=== PATIENT | female | born 1950 | race Caucasian/White ===

== ENCOUNTER 2016-09-09 15:03 | Emergency (ER) | payer MEDICARE ==
[2016-09-09 19:24] LABS: HEMOGLOBIN 13.3 gm/dl (12.3-15.3); RED BLOOD COUNT 4.87 M/UL (4.00-5.10); WHITE BLOOD COUNT 8.8 K/UL (4.5-11.0)
[2016-09-09 19:40] LABS: BUN/CREATININE RATIO 26 (0-10)
== END 2016-09-10 00:15 | disposition home or self-care (01) ==
LOC: ER1 15:03
PROVIDERS: Family Medicine
DX: R10.817 Generalized abdominal tenderness (principal); R19.7 Diarrhea, unspecified; E11.65 Type 2 diabetes mellitus with hyperglycemia; K42.9 Umbilical hernia without obstruction or gangrene; I10 Essential (primary) hypertension; I25.2 Old myocardial infarction; I25.10 Atherosclerotic heart disease of native coronary artery without angina pectoris; J44.9 Chronic obstructive pulmonary disease, unspecified; Z88.1 Allergy status to other antibiotic agents; Z99.81 Dependence on supplemental oxygen; Z90.49 Acquired absence of other specified parts of digestive tract; Z79.899 Other long term (current) drug therapy
CPT/HCPCS: 36415; 80053; 81001; 82962; 83605; 83690; 85025; 87086; 96361; 96374; 96375; 99284; J0360; J2405; J7030; J7050; Q9962

== ENCOUNTER 2016-10-23 17:14 | Emergency (ER) | payer MEDICARE ==
[2016-10-23 18:52] LABS: HEMOGLOBIN 11.7 gm/dl (12.3-15.3); RED BLOOD COUNT 4.37 M/UL (4.00-5.10); WHITE BLOOD COUNT 9.6 K/UL (4.5-11.0)
[2016-10-23 19:24] LABS: BUN/CREATININE RATIO 28 (0-10)
== END 2016-10-23 23:25 | disposition home or self-care (01) ==
LOC: ER1 17:14
PROVIDERS: Emergency Medicine
DX: J44.0 Chronic obstructive pulmonary disease with (acute) lower respiratory infection (principal); J20.9 Acute bronchitis, unspecified; I25.2 Old myocardial infarction; E11.9 Type 2 diabetes mellitus without complications
CPT/HCPCS: 36415; 71020; 80053; 82550; 82553; 83874; 84484; 85025; 93005; 94664; 96365; 96375; 99284; J0456; J0696; J2930

== ENCOUNTER 2020-05-18 20:53 | Inpatient (IN) | payer MEDICARE ==
[~2020-05-18] VITALS: Ht 152.4 cm; Wt 77.1 kg
[~2020-05-18 20:53] MED LIST: ACID REDUCER150 MG PO; ADVAIR HFA 45-218 GM INH; AMLODIPINE BESYL5 MG PO; ARICEPT5 MG PO; ASPIRIN EC81 MG PO; ASPIRIN81 MG PO; ATORVASTATIN CA20 MG PO; BACTRIM DS TAB1 EACH PO; CATAPRES 0.1MG0.1 MG PO; CEFUROXIME250 MG PO; CLOPIDOGREL75 MG PO; HUMALOG100 UNIT/1 SC; HUMALOG100 UNIT/2 SQ; HUMALOG100 UNIT/3 SC; JANUVIA100 MG PO; KLONOPIN TAB 00.5 MG PO; KLONOPIN1 MG PO; LANTUS INS100 UTS/M1 SQ; LANTUS100 UNIT/1 SQ; LEVAQUIN500 MG PO; LIPITOR40 MG PO; LOPRESSOR 50 MG50 MG PO; LOPRESSOR50 MG PO; LORCET HD 10-31 EACH PO; LYRICA150 MG PO; LYRICA300 MG PO; MELATONIN10 MG PO; METOPROLOL TAR100 MG PO; MOBIC15 MG PO; NORCO 7.5-3251 EACH PO; NORVASC5 MG PO; OMEPRAZOLE20 MG PO; OMNICEF 300 MG300 MG PO; PERCOCET 10-321 EACH PO; PERCOCET 5/325 T1 EA PO; PLAVIX 75 MG TA75 MG PO; PRINIVIL20 MG PO; PROZAC20 MG PO; SEROQUEL300 MG PO; TAMIFLU 75 MG C75 MG PO; ZESTRIL 40 MG T40 MG PO; ZESTRIL20 MG PO
[2020-05-18 23:17] LABS: HEMOGLOBIN 12.4 gm/dl (12.3-15.3); RED BLOOD COUNT 4.72 M/UL (4.00-5.10); WHITE BLOOD COUNT 6.2 K/UL (4.5-11.0)
[2020-05-18 23:53] LABS: BUN/CREATININE RATIO 24 (0-10)
[2020-05-19] MEDS ORDERED: ALBUTEROL2.5 MG/3 M NEB (13:01)
[2020-05-19] MEDS ORDERED: CATAPRES 0.1MG0.1 MG PO (13:03)
[2020-05-19] MEDS ORDERED: ELAVIL 50 MG TA50 MG PO (13:05)
[2020-05-19] MEDS ORDERED: OZEMPIC0.25 MG/0. SQ (15:21)
[2020-05-19] MEDS ORDERED: MELATONIN3 MG PO (15:23)
[2020-05-19] MEDS ORDERED: LANTUS SOL100 UNIT/1 SC (15:23)
[2020-05-20 02:32] LABS: RED BLOOD COUNT 4.57 M/UL (4.00-5.10)
[2020-05-20 02:40] LABS: WHITE BLOOD COUNT 4.4 K/UL (4.5-11.0)
[2020-05-20 03:06] LABS: BUN/CREATININE RATIO 39 (0-10)
== END 2020-05-23 19:32 | disposition home health service (06) | DRG 177 ==
LOC: ER1 20:53 → CDU 05-19 03:05 → MED SURG 4 05-19 03:05
PROVIDERS: Physician Assistant; ADMIT Internal Medicine
PROC: XW033E5 Introduction of Remdesivir Anti-infective into Peripheral Vein, Percutaneous Approach, New Technology Group 5 (ICD-10-PCS; 2020-05-19)
PROC: 8E0ZXY6 Isolation (ICD-10-PCS; principal; 2020-05-21)
DX: U07.1 COVID-19 (principal); J12.82 Pneumonia due to coronavirus disease 2019; J96.21 Acute and chronic respiratory failure with hypoxia; J15.9 Unspecified bacterial pneumonia; N39.0 Urinary tract infection, site not specified; I25.10 Atherosclerotic heart disease of native coronary artery without angina pectoris; Z95.5 Presence of coronary angioplasty implant and graft; E11.9 Type 2 diabetes mellitus without complications; G89.29 Other chronic pain; M54.9 Dorsalgia, unspecified; Z86.73 Personal history of transient ischemic attack (TIA), and cerebral infarction without residual deficits; K76.0 Fatty (change of) liver, not elsewhere classified; F11.21 Opioid dependence, in remission; Z90.49 Acquired absence of other specified parts of digestive tract; E66.01 Morbid (severe) obesity due to excess calories; Z68.33 Body mass index [BMI] 33.0-33.9, adult; F39 Unspecified mood [affective] disorder; F03.90 Unspecified dementia, unspecified severity, without behavioral disturbance, psychotic disturbance, mood disturbance, and anxiety; E11.65 Type 2 diabetes mellitus with hyperglycemia; Z99.81 Dependence on supplemental oxygen; W01.0XXA Fall on same level from slipping, tripping and stumbling without subsequent striking against object, initial encounter
CPT/HCPCS: 36415; 70450; 71045; 72100; 80048; 80053; 82550; 82553; 82962; 83036; 83735; 83874; 84132; 84484; 85025; 86140; 87040; 93005; 94640; 94760; 96365; 96366; 96367; 96372; 96375; 97162; 97166; 97530-GP-CQ; 99285; J0360; J0456; J1100; J1650; J2270; J2543; J7030; Q0177; U0002

== ENCOUNTER 2020-08-31 20:10 | Emergency (ER) | payer MEDICARE ==
[~2020-08-31 20:10] MED LIST changes: +ALBUTEROL2.5 MG/3 M NEB; +ELAVIL 50 MG TA50 MG PO; +LANTUS SOL100 UNIT/1 SC; +MELATONIN3 MG PO; +OZEMPIC0.25 MG/0. SQ
[2020-08-31 20:42] LABS: BUN/CREATININE RATIO 23 (0-10)
[2020-08-31 20:48] LABS: HEMOGLOBIN 13.1 gm/dl (12.3-15.3); RED BLOOD COUNT 4.68 M/UL (4.00-5.10); WHITE BLOOD COUNT 13.2 K/UL (4.5-11.0)
[2020-08-31] MEDS ORDERED: CARAFATE1 GM/10 ML PO (22:45)
[2020-08-31] MEDS ORDERED: ZOFRAN ODT 4 MG4 MG PO (22:45)
[2020-08-31] MEDS ORDERED: PROTONIX40 MG PO (22:45)
== END 2020-08-31 23:21 | disposition home or self-care (01) ==
LOC: ER1 20:10
PROVIDERS: Physician Assistant
DX: R10.84 Generalized abdominal pain (principal); J44.9 Chronic obstructive pulmonary disease, unspecified; I12.9 Hypertensive chronic kidney disease with stage 1 through stage 4 chronic kidney disease, or unspecified chronic kidney disease; N18.9 Chronic kidney disease, unspecified; E11.22 Type 2 diabetes mellitus with diabetic chronic kidney disease; E78.5 Hyperlipidemia, unspecified; F17.210 Nicotine dependence, cigarettes, uncomplicated; Z86.73 Personal history of transient ischemic attack (TIA), and cerebral infarction without residual deficits; Z90.49 Acquired absence of other specified parts of digestive tract; Z88.1 Allergy status to other antibiotic agents
CPT/HCPCS: 80053; 81001; 83605; 83690; 85025; 96374; 96375; 99284; J2270; J2405; Q9967

== ENCOUNTER 2020-10-24 12:24 | Emergency (ER) | payer MEDICARE ==
[~2020-10-24 12:24] MED LIST changes: +CARAFATE1 GM/10 ML PO; +PROTONIX40 MG PO; +ZOFRAN ODT 4 MG4 MG PO
[2020-10-24 14:54] LABS: HEMOGLOBIN 12.3 gm/dl (12.3-15.3); RED BLOOD COUNT 4.58 M/UL (4.00-5.10); WHITE BLOOD COUNT 10.5 K/UL (4.5-11.0)
[2020-10-24 15:19] LABS: BUN/CREATININE RATIO 22 (0-10)
[2020-10-24] MEDS ORDERED: DIFLUCAN150 MG PO (17:04)
== END 2020-10-24 19:35 | disposition home or self-care (01) ==
LOC: ER1 12:24
PROVIDERS: Physician Assistant
DX: R30.0 Dysuria (principal); M54.5 Low back pain; G89.29 Other chronic pain; R10.30 Lower abdominal pain, unspecified; E11.9 Type 2 diabetes mellitus without complications; I10 Essential (primary) hypertension; I25.2 Old myocardial infarction; J45.909 Unspecified asthma, uncomplicated; Z86.73 Personal history of transient ischemic attack (TIA), and cerebral infarction without residual deficits; Z90.49 Acquired absence of other specified parts of digestive tract; Z88.1 Allergy status to other antibiotic agents
CPT/HCPCS: 80053; 81001; 83605; 83690; 85025; 87086; 99284; J7040; Q9967

== ENCOUNTER 2020-12-15 08:56 | Emergency (ER) | payer MEDICARE ==
[~2020-12-15 08:56] MED LIST changes: +DIFLUCAN150 MG PO
[2020-12-15 09:35] LABS: HEMOGLOBIN 13.5 gm/dl (12.3-15.3); RED BLOOD COUNT 5.17 M/UL (4.00-5.10); WHITE BLOOD COUNT 8.1 K/UL (4.5-11.0)
[2020-12-15 10:17] LABS: BUN/CREATININE RATIO 16 (0-10)
[2020-12-15] MEDS ORDERED: OMNICEF 300 MG300 MG PO (13:33)
== END 2020-12-15 16:52 | disposition home or self-care (01) ==
LOC: ER1 08:56
PROVIDERS: Emergency Medicine
DX: R10.31 Right lower quadrant pain (principal); R10.32 Left lower quadrant pain; J44.9 Chronic obstructive pulmonary disease, unspecified; I25.10 Atherosclerotic heart disease of native coronary artery without angina pectoris; E11.9 Type 2 diabetes mellitus without complications; I10 Essential (primary) hypertension; Z79.899 Other long term (current) drug therapy
CPT/HCPCS: 80053; 81001; 83605; 83690; 85025; 99284; Q9967

== ENCOUNTER 2021-05-08 15:44 | Emergency (ER) | payer MEDICARE ==
[2021-05-08] MEDS ORDERED: PERCOCET 5-3251 EACH PO (22:33)
[2021-05-08] MEDS ORDERED: LIDOCAINE1 EAC1 TP (22:52)
== END 2021-05-09 00:29 | disposition home or self-care (01) ==
LOC: ER1 15:44
DX: M79.661 Pain in right lower leg (principal); G89.29 Other chronic pain; M54.9 Dorsalgia, unspecified; M25.551 Pain in right hip; F17.210 Nicotine dependence, cigarettes, uncomplicated
CPT/HCPCS: 72100; 72131; 73502; 73552; 73562; 73700; 99284

== ENCOUNTER 2021-08-07 02:26 | Inpatient (IN) | payer MEDICARE ==
[~2021-08-07] VITALS: Ht 152.4 cm; Wt 74.8 kg
[~2021-08-07 02:26] MED LIST changes: +LIDOCAINE1 EAC1 TP; +PERCOCET 5-3251 EACH PO
[2021-08-07 03:26] LABS: HEMOGLOBIN 12.1 gm/dl (12.3-15.3); RED BLOOD COUNT 4.49 M/UL (4.00-5.10); WHITE BLOOD COUNT 10.8 K/UL (4.5-11.0)
[2021-08-07 03:54] LABS: BUN/CREATININE RATIO 22 (0-10)
[2021-08-07] MEDS ORDERED: PROTONIX 40 MG40 M1 PO (10:13)
[2021-08-07] MEDS ORDERED: NORVASC10 MG PO (10:18)
[2021-08-07] MEDS ORDERED: LEXAPRO10 MG PO (10:21)
[2021-08-07] MEDS ORDERED: HYDROCODON-ACE1 EAC6 PO (10:22)
[2021-08-07] MEDS ORDERED: SEROQUEL300 MG PO (10:25)
[2021-08-07] MEDS ORDERED: CARAFATE 1 GM TA1 GM PO (10:26)
[2021-08-07] MEDS ORDERED: ABILIFY5 MG PO (10:27)
[2021-08-07] MEDS ORDERED: ASPIRIN EC325 MG PO (10:28)
[2021-08-07] MEDS ORDERED: WOMEN MULTIVIT1 EAC1 PO (10:28)
[2021-08-07] MEDS ORDERED: ARICEPT5 MG PO (10:30)
[2021-08-07] MEDS ORDERED: LANTUS SOL100 UNIT/1 SC ×2 (10:31→10:32)
[2021-08-07] MEDS ORDERED: ZOFRAN ODT 4 MG4 MG PO (10:37)
[2021-08-09 07:48] LABS: HEMOGLOBIN 12.1 gm/dl (12.3-15.3); RED BLOOD COUNT 4.49 M/UL (4.00-5.10)
[2021-08-09 07:57] LABS: WHITE BLOOD COUNT 7.4 K/UL (4.5-11.0)
[2021-08-09] MEDS ORDERED: SEROQUEL300 MG PO (11:29)
[2021-08-09] MEDS ORDERED: LEVOTHYROXINE150 MCG PO (11:36)
== END 2021-08-09 16:31 | disposition home or self-care (01) | DRG 917 ==
LOC: ER1 02:26 → CDU 05:39 → MED SURG 4 13:25
PROVIDERS: Student in an Organized Health Care Education/Training Program; ADMIT Internal Medicine
DX: T40.2X2A Poisoning by other opioids, intentional self-harm, initial encounter (principal); G92.8 Other toxic encephalopathy; J96.22 Acute and chronic respiratory failure with hypercapnia; J96.11 Chronic respiratory failure with hypoxia; F11.20 Opioid dependence, uncomplicated; E11.40 Type 2 diabetes mellitus with diabetic neuropathy, unspecified; I25.10 Atherosclerotic heart disease of native coronary artery without angina pectoris; I11.9 Hypertensive heart disease without heart failure; M54.9 Dorsalgia, unspecified; Z20.822 Contact with and (suspected) exposure to COVID-19; E87.6 Hypokalemia; E11.649 Type 2 diabetes mellitus with hypoglycemia without coma; G89.29 Other chronic pain; J44.9 Chronic obstructive pulmonary disease, unspecified; F17.210 Nicotine dependence, cigarettes, uncomplicated; E66.9 Obesity, unspecified; K76.0 Fatty (change of) liver, not elsewhere classified; R00.1 Bradycardia, unspecified; E03.8 Other specified hypothyroidism; Z95.1 Presence of aortocoronary bypass graft; Z86.73 Personal history of transient ischemic attack (TIA), and cerebral infarction without residual deficits; Z90.49 Acquired absence of other specified parts of digestive tract; Z98.51 Tubal ligation status; Z95.5 Presence of coronary angioplasty implant and graft; Z79.899 Other long term (current) drug therapy; Z99.81 Dependence on supplemental oxygen; Z79.4 Long term (current) use of insulin; Z79.82 Long term (current) use of aspirin; Z68.31 Body mass index [BMI] 31.0-31.9, adult
CPT/HCPCS: 36415; 36600; 71045; 80048; 81001; 82550; 82553; 82803; 82962; 83605; 84132; 84439; 84443; 84484; 85025; 85027; 85652; 86140; 87040; 93005; 96374; 96375; 97162; 97165; 97530; 99284; J0696; J1650; J1720; U0002